=== PATIENT | female | born 1965 | race Caucasian/White ===

== ENCOUNTER 2020-01-16 09:54 | Emergency (ER) | payer OTHER, SELFPAY ==
--- NOTE | ~2020-01-16 | XR_ITS ---
EXAMINATION: XR shoulder LT min 2V DATE: 01/16/2020 11:11 INDICATION: Left shoulder strain with limited mobility post lifting injury 2 days prior TECHNIQUE: AP internally and externally rotated, AP oblique externally rotated and transscapular Y vi ews of the left shoulder were obtained. COMPARISON: None FINDINGS: Normal alignment. No acute fracture. Old healed fracture deformities of the lateral left fourth and fifth ribs. Glenohumeral joint is normal. Mild acromioclavicular osteoarthritis. Prominent globular c alcifications adjacent to the middle and posterior facets of the greater tuberosity consistent with c alcific tendinitis likely of the teres minor and posterior infraspinatus tendons. Visualized portions of the left lung are clear. IMPRESSION: Rotator cuff calcific tendinitis. No acute osseous abnormality. Reviewed, dictated and finalized at location A. S BULB SILVERER
--- NOTE | 2020-01-16 09:56 | ED.GENADULT ---
HPI - General Adult General Chief complaint: Extremity Injury, Upper Stated complaint: L/Shoulder Injury Time Seen by Provider: 01/16/20 10:10 Source: patient Mode of arrival: ambulatory Limitations: no limitations History of Present Illness HPI narrative: 54-year-old female patient presents to the [facility] with complaints of left shoulder pain for the past 2 days. Patient states that she was at work and was lifting a heavy bag of garbage and trying to throw it into the dumpster and since then has been having shoulder pain to the left side. Patient states she is able to bend her elbow denies any elbow pain. Patient denies any numbness or tingling. Related Data Home Medications Medication Instructions Recorded Confirmed atorvastatin 80 mg PO DAILY 01/16/20 01/16/20 lisinopril 5 mg PO DAILY 01/16/20 01/16/20 metoprolol tartrate 25 mg PO BID 01/16/20 01/16/20 ticagrelor [Brilinta] 90 mg PO BID 01/16/20 01/16/20 Allergies Allergy/AdvReac Type Severity Reaction Status Date / Time NKDA Allergy Mild Unknown Uncoded 01/16/20 10:08 Review of Systems Review of Systems: Narrative: CONSTITUTIONAL: Denies fever, chills, or sweats. EYES: Denies visual changes, redness, or discharge. ENT: Denies rhinorrhea, congestion, sore throat, or otalgia. CARDIOVASCULAR: Denies chest pain, palpitations, or edema. RESPIRATORY: Denies cough or dyspnea. GASTROINTESTINAL: Denies abdominal pain, nausea, vomiting, or diarrhea. GENITOURINARY: Denies dysuria or hematuria. SKIN: Denies rash or itching. MUSCULOSKELETAL: Denies back pain, joint pain, or myalgia. Positive left shoulder pain NEUROLOGIC: Denies headache, numbness, or weakness. PSYCHIATRIC: Denies anxiety or depression. [facility] Past Medical History Medical History (Updated 01/16/20 @ 10:19 by JUAN ANTONIO Ramsay) Bronchitis Depression Non-STEMI (non-ST elevated myocardial infarction) Pneumonia Postmenopausal Tibial fracture Comments At the time of my signature I agree with nursing past medical history, surgical, social, and family history. There is no relevant family history pertinent to the presenting complaint. Exam Narrative: Exam Narrative: GENERAL: Well-appearing, well-nourished, and in no acute distress. HEAD: Normocephalic, atraumatic. EYES: PERRLA and EOMI. ENT: Nares clear, no rhinorrhea or epistaxis. Mucous membranes moist. NECK: Supple. No lymphadenopathy CHEST: Clear to auscultation. No respiratory distress. HEART: Regular rate and rhythm. No murmur heard. Normal peripheral pulses. ABDOMEN: Soft, nontender, nondistended, normal active bowel sounds. EXTREMITIES: The L shoulder is without obvious asymmetry or deformity when compared to the R shoulder. No surface trauma, ecchymosis, crepitus. No bony deformity or prominence of the humeral head No erythema, warmth, swelling. no tenderness to palpation to clavicle, A to C joint, acromion, scapula or humeral head. tenderness to palpation of the bicipital groove and soft tissues on left shoulder. No tenderness to palpation of the muscles of the sterncleidomastoid, pectorals, biceps/triceps, tenderness over the deltoid, no tenderness noted to the trapezius, rhomboid, latissimus dorsi, tenderness over the rotator cuff. pain and limitation with active and passive abduction/adduction, normal internal/external rotation, unable to flexion/extension of the left shoulder. Unable to perform empty can and drop arm test (rotator cuff). No axillary tenderness or lymphadenopathy. Normal sensation over the deltoid and ability to flex arm at elbow indicates intact axillary nerve function. Distal motor and neurovascular status is intact. SKIN: Warm, dry, no rash. NEURO: No focal deficits. Alert and oriented x3. Course Vital Signs Vital signs: Vital Signs Temperature 37.1 C 01/16/20 10:05 Pulse Rate 74 01/16/20 10:05 Respiratory Rate 16 01/16/20 10:05 Blood Pressure 111/69 01/16/20 10:05 Pulse Oximetry 99 01/16/20 10:05
[2020-01-16 10:05] VITALS: BP 111/69; PULSE 74; RESP 16; TEMP 37.1; O2SAT 99
== END 2020-01-16 11:28 | disposition home or self-care (01) ==
PROVIDERS: Emergency Provider Nurse Practitioner Family
DX: S46.812A Strain of other muscles, fascia and tendons at shoulder and upper arm level, left arm, initial encounter (principal); X50.0XXA Overexertion from strenuous movement or load, initial encounter; I25.2 Old myocardial infarction
CPT/HCPCS: 73030; 99213; A4565; G0463

== ENCOUNTER 2024-01-09 16:18 | Emergency (ER) | payer BC, SELFPAY ==
--- NOTE | ~2024-01-09 | XR_ITS ---
EXAMINATION: [id number] INDICATION: Right-sided chest pain TECHNIQUE: A frontal view of the chest and 3 views of the right ribs were obtained. COMPARISON: None. FINDINGS: There are minimally displaced anterolateral fractures of the right seventh, eighth, and trang th ribs. No pleural effusion or pneumothorax. There is mild atelectasis of the lung bases. The cardio mediastinal silhouette is normal. IMPRESSION: 1. Minimally displaced anterolateral fractures of the right seventh, eighth, and ninth ribs. No acute cardiopulmonary abnormality. Reviewed, dictated and finalized at location L. GE HAND IMPRESSION: 1. Minimally displaced anterolateral fractures of the right seventh, eighth, an d ninth ribs. No acute cardiopulmonary abnormality.
--- NOTE | 2024-01-09 16:19 | ED.FALL ---
HPI - Fall General Chief Complaint: Extremity Injury, Lower Stated Complaint: Fall Time Seen by Provider: 01/09/24 16:18 Source: patient Mode of arrival: ambulatory Limitations: no limitations History of Present Illness HPI Narrative: Patient is a 58-year-old female who presents with right rib pain after fall in bathroom. Patient states she had a trash can and then onto the floor. Denies any your head. Denies any blood thinners. Reports trips are tender to touch and has increased pain with coughing or deep breathing. Denies any shortness of breath. Related Data Home Medications Medication Instructions Recorded Confirmed No Home Medications 01/09/24 01/09/24 Allergies Allergy/AdvReac Type Severity Reaction Status Date / Time NKDA Allergy Mild Unknown Uncoded 01/09/24 17:03 Review of Systems Review of Systems: All systems reviewed & are unremarkable except as noted in HPI and below Constitutional: Constitutional: Denies body ache(s), Denies chills, Denies fatigue, Denies fever(s), Denies headache(s), Denies malaise and Denies weakness Eyes: Eyes: Denies blurry vision, Denies irritation and Denies loss of vision ENT: Denies otalgia, Denies headache(s), Denies nasal discharge, Denies sinus pain and Denies sore throat Cardiovascular: Cardiovascular: Denies chest pain, Denies irregular heart rhythm and Denies dyspnea Respiratory: Respiratory: Reports pain with cough and Denies dyspnea Gastrointestinal: Gastrointestinal: Denies abdominal pain, Denies melena, Denies hematochezia, Denies diarrhea, Denies nausea and Denies vomiting Musculoskeletal: Musculoskeletal: Denies back pain, Denies myalgias and Denies arthralgias Integumentary/Breasts: Skin/Breast: Denies pruritus and Denies rash Neurologic: Denies headache(s), Denies loss of vision and Denies weakness Psychiatric: Psychiatric: Reports no additional psychiatric complaints Endocrine: Endocrine: Denies fatigue PMFSH Past Medical History Medical History Bronchitis Calcific tendonitis of left shoulder Depression Non-STEMI (non-ST elevated myocardial infarction) Pneumonia Postmenopausal Tibial fracture Comments At time of signature, agree with nursing past medical, surgical, social and family history. There is no relevant family history pertinent to the presenting complaint. Exam Const: General: cooperative, healthy appearing, comfortable, no acute distress and well nourished Nutritional Appearance: well nourished Orientation/consciousness: patient oriented x3 Limitations: no limitations HENMT: Head: normal to inspection, normocephalic and atraumatic Ears: hearing grossly normal bilaterally and external ears normal Face/Nose/Sinus: Normal external nose present, normal facial exam and face symmetric Face and sinus: normal facial exam and face symmetric Mouth: Yes lip normal Eyes: General: appearance normal, both eyes and all related structures Alignment and Position: alignment normal and position normal Periorbital: periorbital findings normal Eyelids: eyelids normal Pupils: Equal, round and reactive pupils present EOM: EOMs intact bilaterally Neck: Neck: normal visual inspection, full ROM and supple Chest: Chest palpation & inspection: localized rib tenderness with anteroposterior compression right mid-axillary line involving the 7th rib, involving the 8th rib and involving the 9th rib Resp: Effort & Inspection: normal respiratory effort and able to speak in complete sentences Auscultation: clear to auscultation bilaterally, no crackles, no rales, no rhonchi and no wheezes Cardio: Rate: regular rate Rhythm: regular rhythm Heart sounds: S1 normal heart sound present and S2 normal heart sound present GI: Inspection: normal to inspection Skin: General skin exam: normal color and no rashes or lesions noted Neuro: General: patient oriented x3 and moves all extremities Cranial nerves:
[2024-01-09 16:34] VITALS: BP 133/72; PULSE 75; RESP 18; TEMP 36.5; O2SAT 97
== END 2024-01-09 17:36 | disposition short-term general hospital (02) ==
PROVIDERS: Emergency Provider Nurse Practitioner Family
DX: S22.41XA Multiple fractures of ribs, right side, initial encounter for closed fracture (principal); I25.2 Old myocardial infarction; W18.39XA Other fall on same level, initial encounter
CPT/HCPCS: 71101; 99213; G0463

== ENCOUNTER 2024-01-09 18:22 | Emergency (ER) | payer BC, SELFPAY ==
--- NOTE | ~2024-01-09 | CT_ITS ---
EXAMINATION: CT chest abdomen pelvis wo con DATE: 01/09/2024 23:17 INDICATION: Right rib fractures. Right upper quadrant abdominal pain. TECHNIQUE: Computed tomography (CT) of the chest, abdomen, and pelvis was performed without intraveno us contrast. Automated exposure control and iterative reconstruction technique were employed. The dos e-length product was 1316.15 mGy-cm. COMPARISON: Chest CT 12/23/2009, right rib radiographs 01/09/2024 FINDINGS: CHEST CT: The lungs demonstrated mild atelectasis. There is a stable 5 mm nodule in right upper lobe, likely be nign. A calcified right lung nodule is consistent with old granulomatous disease. There is mild bronc hiectasis in the inferior lungs. No pleural effusion. The heart size is normal. No pericardial effusi on. There are coronary artery calcifications. There is severe thoracic spondylosis. There is an old h ealed fracture of right sixth rib. There are acute fractures of right seventh-ninth ribs. ABDOMEN/PELVIS CT: The liver, gallbladder, spleen, pancreas, and adrenal glands are normal. There is cortical thinning o f right kidney. There is a right inguinal hernia containing fat. There is a left inguinal hernia cont aining fat. There are no dilated loops of bowel. The appendix is normal. There is fat stranding at th e root of the small bowel mesentery, which may be edema or inflammation/scarring (mesenteric pannicul itis). There are no pathologically enlarged lymph nodes. There is no free intraperitoneal fluid. Ther e is moderate lumbar spondylosis. IMPRESSION: 1. Acute fractures of right seventh-ninth ribs. Reviewed, dictated and finalized at location E. A COTTA SETTER
[2024-01-09 19:21] VITALS: BP 142/79; PULSE 83; RESP 18; TEMP 36.7; O2SAT 100
[2024-01-09 20:37] VITALS: RESP 13; O2SAT 96
[2024-01-09] MEDS: LIDOCAINE 5% PATCH 1 PATCH TRANSDERM (23:24)
[2024-01-09] MEDS: HYDROcodone/acetaminophen (*CRX) 5-325 MG TABLET 1 TAB PO (23:24)
--- NOTE | 2024-01-09 23:44 | ED.FALL ---
HPI - Fall General Chief Complaint: Fall Stated Complaint: fall, 3 fx ribs sent from urgent care Time Seen by Provider: 01/09/24 22:04 Source: patient Mode of arrival: ambulatory Limitations: no limitations History of Present Illness HPI Narrative: Patient is a 58-year-old female who presents to the ED with report of right-sided chest wall pain. Patient reports she tripped and fell while using the bathroom on Saturday night. She hit her right-sided chest wall against a trash can. She denied any head injury or LOC. She has had pain to her right lateral chest wall since then. Reports pain worse with movement and deep breathing. Denies feeling short of breath or dyspnea with exertion. She was seen at an urgent care today and had a cxr performed which showed 3 rib fractures. Patient was then sent here for further evaluation. Patient denies any other areas of pain. She has not taken anything for pain today. Denies abdominal pain, nausea, vomiting, anterior chest pain. Related Data Allergies Allergy/AdvReac Type Severity Reaction Status Date / Time NKDA Allergy Mild Unknown Uncoded 01/09/24 17:03 Review of Systems Review of Systems: CONSTITUTIONAL: Denies fever, chills, or sweats. CARDIOVASCULAR: Denies chest pain. RESPIRATORY: See HPI GASTROINTESTINAL: Denies abdominal pain, nausea, vomiting. MUSCULOSKELETAL: See HPI. NEUROLOGIC: Denies HI, LOC, headache, dizziness, numbness, or weakness. All systems reviewed & are unremarkable except as noted in HPI and below PMFSH Past Medical History Medical History (Updated 01/10/24 @ 00:04 by Background Daemon) Bronchitis Calcific tendonitis of left shoulder Depression Non-STEMI (non-ST elevated myocardial infarction) Pneumonia Postmenopausal Tibial fracture Exam Narrative: GENERAL: Well appearing, obese with BMI of 34.8, non-toxic, in no acute distress. HEAD: Normocephalic, atraumatic. RESPIRATORY: Airway patent, respirations nonlabored. Clear to auscultation bilaterally, no rales, rhonchi, wheezing. No focal lung sounds. No splinting. CARDIOVASCULAR: Regular rate and rhythm without murmurs, rubs, or gallops. ABDOMINAL: Soft, tenderness to palpation throughout R upper and lateral abdomen, nondistended. Normoactive BS. MUSCULOSKELETAL: Moves all extremities. No gross deformities. TTP along right lower anterior lateral chest wall along ribcage, no crepitus or palpable deformity. No midline cervical, thoracic, lumbar spinal tenderness. SKIN: Warm, dry, normal color. NEURO: A&O X3. Speech clear. Cranial nerves II-XII grossly intact. No ataxic movements. PSYCHIATRIC: Appropriate mood and affect. Normal interaction. Course Vital Signs Vital signs: Vital Signs Temperature 98.0 F 01/09/24 19:21 Pulse Rate 83 01/09/24 19:21 Respiratory Rate 18 01/09/24 19:21 Blood Pressure 142/79 H 01/09/24 19:21 Pulse Oximetry 100 01/09/24 19:21 Oxygen Delivery Room Air 01/09/24 19:21 Temperature 98.0 F 01/09/24 19:21 Pulse Rate 83 01/09/24 19:21 Respiratory Rate 13 01/09/24 20:37 Blood Pressure 142/79 H 01/09/24 19:21 Pulse Oximetry 96 01/09/24 20:37 Oxygen Delivery Room Air 01/09/24 19:21 MDM - Fall MDM Narrative Medical decision making narrative: Patient presented to ED with multiple right-sided rib fractures confirmed as outpatient at urgent care today, history of ground level mechanical fall on Saturday. Patient denies any other injuries. Denies head injury or LOC. Denies shortness of breath or anterior chest pain. Vitals are stable upon arrival. Oxygen stable on room air. She is not requiring any supplemental oxygen. CT of chest/ abdomen pelvis obtained to rule out further traumatic findings. Again shows acute right 7th through 9th rib fractures. No pneumothorax or pulmonary contusion. No other abnormalities. No intra-abdominal findings. Patient will be discharged with pain control and incentive spirometer. Recommended
[2024-01-10] MEDS: KETOROLAC (*BKC) 60 MG/2 ML VIAL IM (00:08)
[2024-01-10 00:23] VITALS: BP 146/68; PULSE 68; RESP 16; O2SAT 98
== END 2024-01-10 00:36 | disposition home or self-care (01) ==
PROVIDERS: Emergency Provider Physician Assistant
DX: S22.41XA Multiple fractures of ribs, right side, initial encounter for closed fracture (principal); I25.2 Old myocardial infarction; Z87.01 Personal history of pneumonia (recurrent); W01.198A Fall on same level from slipping, tripping and stumbling with subsequent striking against other object, initial encounter
CPT/HCPCS: 71101; 71250; 74176; 96372; 99284; A9270; J1885

== ENCOUNTER 2024-01-24 10:59 | Outpatient (CLI) | payer BC, SELFPAY ==
--- NOTE | ~2024-01-24 | XR_ITS ---
EXAMINATION: XR ribs RT 2V INDICATION: Right rib pain TECHNIQUE: 3 views of the right ribs were obtained. COMPARISON: CT, 01/09/2024 FINDINGS: The previously described nondisplaced fractures of the right seventh, eighth, and ninth rib s are faintly seen. Calcified callus has developed at the fracture site. No additional rib fracture i s identified. The visualized portions of the lungs are clear. IMPRESSION: 1. Healing anterolateral fractures of the right seventh, eighth, and ninth ribs. Reviewed, dictated and finalized at location B. ER OUT IMPRESSION: 1. Healing anterolateral fractures of the right seventh, eighth, and ninth ribs .
== END 2024-01-24 11:00 ==
PROVIDERS: PCP Nurse Practitioner Family; Visit Provider Nurse Practitioner Family
DX: S22.41XD Multiple fractures of ribs, right side, subsequent encounter for fracture with routine healing (principal); X58.XXXD Exposure to other specified factors, subsequent encounter
CPT/HCPCS: 71100